=== PATIENT | male | born 1955 | race Caucasian/White ===

== ENCOUNTER 2017-02-21 07:36 | Emergency (ER) | payer OTHER ==
[2017-02-21] MEDS ORDERED: Orphenadrine Citrate IV* 30 MG/ML 2 ML VIAL IV ONE (07:58)
[2017-02-21] MEDS ORDERED: Dexamethasone IV* 4 MG/ML 1 ML (4 MG) IV SLOW PU ONE (07:58)
[2017-02-21] MEDS ORDERED: Ketorolac INJ* 30 MG/ML 1 ML VIAL IV PUSH ONE (07:58)
--- NOTE | 2017-02-21 08:45 | RAD ---
INDICATION: Low back and pelvic pain COMPARISON: None. TECHNIQUE: 3 views of the lumbar spine and 3 views of the pelvis were obtained. FINDINGS: On the lateral view the lumbar spine there is nonspecific straightening of the normal lumbar lordosis. There is mild loss of intervertebral disc height with very mild marginal osteophyte formation. There is no evidence of acute compression fracture or severe spondylolisthesis. AP and lateral views of the pelvis demonstrate the sacrum to be intact. The iliopectineal and ilioischial lines are intact. No fracture or dislocation is seen in the pelvis. IMPRESSION: Mild degenerative changes of the lumbar spine without radiographically apparent acute abnormality.
[2017-02-21 09:03] LABS: Hematocrit 43 % (42-52); Hemoglobin 15.2 g/dl (14.0-18.0); Mean Corpuscular HGB Conc 35 g/dl (31-36); Mean Corpuscular Hemoglobin 32 pg (27-31); Mean Corpuscular Volume 91 fL (80-94); Mean Platelet Volume 10 um3 (7.4-10.4); Red Blood Count 4.76 10^6/ul (4.0-5.4); Red Cell Distribution Width 13 % (10.5-15); White Blood Count 6.3 10^3/ul (3.5-10.8)
[2017-02-21 09:23] LABS: Albumin 4.2 g/dL (3.2-5.2); BUN/Creatinine Ratio 16.5 (8-20); C Reactive Protein 1.4 mg/L (< 5.00); Calcium 9.3 mg/dL (8.6-10.3); EGFR African American 88.7 (>60); Globulin 2.5 g/dL (2-4); Potassium 4.2 mmol/L (3.5-5.0); Total Bilirubin 0.6 mg/dL (0.2-1.0); Total Protein 6.7 g/dL (6.4-8.9)
[2017-02-21] MEDS ORDERED: Iohexol 300* (CONTRAST) 10 ML SDV IV ONE (10:27)
--- NOTE | 2017-02-21 11:57 | RAD ---
CLINICAL HISTORY: Pelvic pain with radiation to the groin and rectum. The pain is exacerbated with sitting. COMPARISON: None TECHNIQUE: Contrast enhanced CT examination of the abdomen and pelvis from the lung bases through the initial tuberosities. The patient received 100 mL Omnipaque 300 intravenously prior to imaging.The patient received oral contrast as well prior to imaging. FINDINGS: VISUALIZED LUNG BASES: The visualized lung bases are grossly clear. There is no pleural effusion. ABDOMEN AND PELVIS: The liver, spleen, pancreas and adrenal glands are grossly normal in appearance. The gallbladder is normal. The kidneys are normal in appearance without focal mass, calcification or signs of hydronephrosis. On the delayed phase imaging contrast is excreted promptly and symmetrically. Neural contrast has progressed as far as the distal small bowel. The small and large bowel are not distended. The patient's normal appendix is identified in the right lower quadrant measuring just under 6 mm in diameter with gas in the lumen (coronal image 48).. There is no gross retroperitoneal or mesenteric lymphadenopathy. The pelvic viscera is normal in appearance. The abdominal aorta and iliac arteries are normal in course and diameter. Mild degenerative changes of the lumbar spine includes loss of intervertebral disc height and mild marginal osteophyte formation.There are no sinister bone lesions. IMPRESSION: Mild degenerative changes of the lower lumbar spine in this otherwise normal CT examination.
[2017-02-21 12:15] VITALS: BP 139/82
--- NOTE | 2017-02-21 17:12 | ED ---
José Singh Angela, scribed for Viral Dean MD on 02/21/17 at 0750 . Back Pain - HPI Summary HPI Summary: This pt is a 61 y/o male presenting to [facility] c/o lower back pain radiating to his rectum x2.5 months associated with groin pain. Pt reports that recently he has had calf, ankles, and feet pain. Pt notes his penis is red. He states that he was put on antibiotics for prostate by Dr. Kee. Pt also saw Dr. Smart who was told to stop these medications. He sates his pain is aggravated when sitting down and feels "queasy." He describes his pain as sharp. 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 He denies any trauma or fall. Pt denies weakness, numbness or tingling in LE, bladder or bowel incontinence. - History of Current Complaint Chief Complaint: EDGeneral Stated Complaint: BACK PAIN, GROIN PAIN, LEG PAIN Hx Obtained From: Patient Onset/Duration: Lasting Weeks Onset/Duration: Started Weeks Ago, Atraumatic Timing: Lasting Weeks Back Pain Location: Radiates To - rectum Pain Intensity: 8 Pain Scale Used: 0-10 Numeric Character: Sharp Aggravating Symptom(s): Other - sitting Alleviating Symptom(s): Other - standing Associated Signs And Symptoms: Negative: Weakness, Numbness, Tingling, Bladder Incontinence, Bowel Incontinence PMH/Surg Hx/FS Hx/Imm Hx Endocrine/Hematology History: Denies: Hx Diabetes Cardiovascular History: Denies: Hx Hypertension Infectious Disease History: No Infectious Disease History: Denies: Traveled Outside the [place] in Last 30 Days - Family History Known Family History: Negative: Respiratory Disease - Social History Alcohol Use: None Hx Substance Use: No Substance Use Type: Reports: None Hx Tobacco Use: No Smoking Status (MU): Never Smoked Tobacco Review of Systems Negative: Fever, Chills Eyes: Negative ENT: Negative Negative: Chest Pain Negative: Shortness Of Breath Negative: Abdominal Pain Negative: incontinence - bowel or bladde Positive: Other - back pain, rectal pain, groin pain, calf, feet, and ankle pain Negative: Weakness, Paresthesia, Numbness All Other Systems Reviewed And Are Negative: Yes Physical Exam - Summary Physical Exam Summary: VITAL SIGNS: Reviewed. GENERAL: Patient is a well-developed and nourished male. Patient is not in any acute respiratory distress. HEAD AND FACE: No signs of trauma. No ecchymosis, hematomas or skull depressions. No sinus tenderness. EYES: PERRLA, EOMI x 2, No injected conjunctiva, no nystagmus. EARS: Hearing grossly intact. Ear canals and tympanic membranes are within normal limits. MOUTH: Oropharynx within normal limits. NECK: Supple, trachea is midline, no adenopathy, no JVD, no carotid bruit, no c- spine tenderness, neck with full ROM. CHEST: Symmetric, no tenderness at palpation LUNGS: Clear to auscultation bilaterally. No wheezing or crackles. CVS: Regular rate and rhythm, S1 and S2 present, no murmurs or gallops appreciated. ABDOMEN: Soft, non-tender. No signs of distention. No rebound no guarding, and no masses palpated. Bowel sounds are normal. EXTREMITIES: FROM in all major joints, no edema, no cyanosis or clubbing. There is tenderness in the lumbosacral area to palpation. Theres is tenderness in the right and left gluteal area. Straight leg raise is negative on both sided. There is good tendon reflex. Pt is ambulating. NEURO: Alert and oriented x 3. No acute neurological deficits. Speech is normal and follows commands. SKIN: Dry and warm Triage Information Reviewed: Yes Vital Signs On Initial Exam: Initial Vitals Temp Pulse Resp BP Pulse Ox 97 F 79 16 146/89 98 02/21/17 07:39 02/21/17 07:39 02/21/17 07:39 02/21/17 07:39 02/21/17 07:39 Vital Signs Reviewed: Yes Diagnostics - Vital Signs Vital Signs Temp Pulse Resp BP Pulse Ox 02/21/17 07:39 97 F 79 16 146/89 98 - Laboratory Lab Results: Lab Results 02/21/17 02/21/17 Range/Units 08:45 08:45 WBC 6.3 (3.5-10.8) 10^3/ul RBC 4.76 (4.0-5.4) 10^6/ul Hgb 15.2 (14.0-18.0) g/dl Hct 43 (42-52) % MCV 91 (80-94) fL MCH 32 H (27-31) pg MCHC 35 (31-36) g/dl RDW 13 (10.5-15) % Plt Count 199 (150-450) 10^3/ul MPV 10 (7.4-10.4) um3 Neut % (Auto) 62.6 (38-83) % Lymph % (Auto) 27.1 (25-47) % [facility] % (Auto) 8.3 (1-9) % Eos % (Auto) 1.2 (0-6) % Baso % (Auto) 0.8 (0-2) % Absolute Neuts (auto) 4.0 (1.5-7.7) 10^3/ul Absolute Lymphs (auto) 1.7 (1.0-4.8) 10^3/ul Absolute Monos (auto) 0.5 (0-0.8) 10^3/ul Absolute Eos (auto) 0.1 (0-0.6) 10^3/ul Absolute Basos (auto) 0 (0-0.2) 10^3/ul Absolute Nucleated RBC 0 10^3/ul Nucleated RBC % 0 Sodium 136 (133-145) mmol/L Potassium 4.2 (3.5-5.0) mmol/L Chloride 105 (101-111) mmol/L Carbon Dioxide 27 (22-32) mmol/L Anion Gap 4 (2-11) mmol/L BUN 18 (6-24) mg/dL Creatinine 1.09 (0.67-1.17) mg/dL Est GFR ( Amer) 88.7 (>60) Est GFR (Non-Af Amer) 69.0 (>60) BUN/Creatinine Ratio 16.5 (8-20) Glucose 111 H (70-100) mg/dL Calcium 9.3 (8.6-10.3) mg/dL Total Bilirubin 0.60 (0.2-1.0) mg/dL AST 19 (13-39) U/L ALT 24 (7-52) U/L Alkaline Phosphatase 72 (34-104) U/L C-Reactive Protein 1.40 (< 5.00) mg/L Total Protein 6.7 (6.4-8.9) g/dL Albumin 4.2 (3.2-5.2) g/dL Globulin 2.5 (2-4) g/dL Albumin/Globulin Ratio 1.7 (1-3) Result Diagrams: 02/21/17 08:45 02/21/17 08:45 Lab Statement: Any lab studies that have been ordered have been reviewed, and results considered in the medical decision making process. - Radiology Lumbar Spine XR Xray Interpretation: Positive (See Comments) - IMPRESSION: Mild degenerative changes of the lumbar spine without radiographically apparent acute abnormality. ED physician has reviewed this radiology report and agrees. Radiology Interpretation Completed By: Radiologist Sacrum and Coccyx XR Xray Interpretation: Positive (See Comments) - IMPRESSION: Mild degenerative changes of the lumbar spine without radiographically apparent acute abnormality. ED physician has reviewed this radiology report and agrees. Radiology Interpretation Completed By: Radiologist - CT Abdomen/Pelvis CT CT Interpretation: Positive (See Comments) - IMPRESSION: Mild degenerative changes of the lower lumbar spine in this otherwise normal CT examination. ED physician has reviewed this radiology report and agrees. CT Interpretation Completed By: Radiologist Re-Evaluation - Re-Evaluation First Eval Re-Evaluation Time: 12:00 Comment: Pt's pain has significantly improved after medications. Back Pain Course/Dx - Course Assessment/Plan: This pt is a 61 y/o male presenting to [facility] c/o lower back pain radiating to his rectum x2.5 months associated with groin pain. Pt reports that recently he has had calf, ankles, and feet pain. Pt notes his penis is red. He states that he was put on antibiotics for prostate by Dr. Kee. Pt also saw Dr. Smart who was told to stop these medications. He sates his pain is aggravated when sitting down and feels "queasy." He describes his pain as sharp. 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 He denies any trauma or fall. Pt denies weakness, numbness or tingling in LE, bladder or bowel incontinence. Test results without any significant abnormalities. XR of the lumbar spine and sacrum and coccyx show mild degenerative changes of the lumbar spine without radiographically apparent acute abnormality. At this point I did not find any abnormalities but he continues to have pain in the gluteus. During examination he reported rectal pain, but it is actually gluteal pain in the right gluteus. To complete the work up I decided to do an abdominal CT, which resulted negative. Pt was given IV fluids, Decadron, Toradol, and norflex and his symptoms subsided. Pt is ambulating with no difficulties. Since his symptoms subsided, I believe the pt has sciatica. Pt will be discharged home with follow up from his PCP. Pt is hemodynamically stable, alert and oriented x3. - Diagnoses Differential Diagnosis/HQI/PQRI: Positive: Arthritis, Fracture, Herniated Disc, Osteoporosis, Strain, Sprain Provider Diagnoses: Sciatica Discharge - Discharge Plan Condition: Stable Disposition: HOME Prescriptions: Methocarbamol TAB* [Robaxin 500 MG TAB*] 750 mg PO TID #12 tab Methylprednisolone [Medrol Dosepak 4 MG*] 0 mg PO .SEE JOSHUA INSTRUCTION #1 pkt Naproxen TAB* [Naprosyn 250 mg TAB*] 500 mg PO Q8H PRN #30 tab PRN Reason: Pain Patient Education Materials: Sciatica (ED) Referrals: Jorge Kee DO [Primary Care Provider] - Additional Instructions: Please follow up with your primary care provider. RETURN TO THE ED FOR ANY WORSENING SYMPTOMS. The documentation as recorded by the José ferreira Angela accurately reflects the service I personally performed and the decisions made by , Viral Dean MD.
== END 2017-02-21 12:13 | disposition home or self-care (01) ==
LOC: ED 07:36
DX: M54.30 Sciatica, unspecified side (principal); M54.5 Low back pain
CPT/HCPCS: 36415; 72100; 72220; 74177; 80053; 85025; 86140; 96374; 96375; 99282; J1100; J1885; J2360; Q9967

== ENCOUNTER → 2017-06-11 15:39 | Emergency (ER) | payer SELFPAY ==
[~2017-06-11 15:39] MED LIST: Ibuprofen TAB* 600 MG PO ONE
[2017-06-11 15:48] VITALS: BP 151/94
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
== END | disposition home or self-care (01) ==
LOC: ED 15:39
DX: S43.401A Unspecified sprain of right shoulder joint, initial encounter (principal); I10 Essential (primary) hypertension; V86.05XA Driver of 3- or 4- wheeled all-terrain vehicle (ATV) injured in traffic accident, initial encounter; Y92.410 Unspecified street and highway as the place of occurrence of the external cause; E78.00 Pure hypercholesterolemia, unspecified
CPT/HCPCS: 99282; A9270-GY